=== PATIENT | female | born 1985 | race Caucasian/White ===

== ENCOUNTER 2016-11-04 13:22 | Emergency (ER) | payer OTHER ==
[~2016-11-04] VITALS: Ht 170.2 cm; Wt 63.5 kg
[~2016-11-04 13:22] MED LIST: AMOX500T PO; PNV1TABL25 PO
[2016-11-04 13:33] VITALS: BP 144/73
--- NOTE | 2016-11-04 14:00 | PHYS DOC ---
General Chief Complaint: MULTIPLE COMPLAINTS Stated Complaint: MULTIPLE COMPLAINTS Time Seen by MD: 13:24 Source: patient Exam Limitations: no limitations Problems: History of Present Illness Initial Comments Pt is 31/F to ED c/o right face symptoms. Pt states she has severe allergic rhinitis as baseline. Past few days pt with worsening right TMJ discomfort/popping/swelling. Past two days right eye red/ itchy/watery. No contacts/vision change/hearing change/ear discharge/trauma. No fever/chills/myalgias/diaphoresis, no cp/sob/reyna/focal neurologic symptoms. Taking OTC sudafed in addition to her normal allergy regimen HR 110 bpm asymptomatic. Pt also drank [employer] energy drink early this am. Timing/Duration: gradual Severity: moderate Location: eye (R), facial Prearrival Treatment: over the counter meds Modifying Factors: worse with coughing, improves with rest Associated Symptoms: facial pain/swelling, other Allergies: Coded Allergies: No Known Drug Allergies (Unverified , 12/31/14) Past Medical History Medical History: other (depression) Surgical History: noncontributory Social History Smoker: non-smoker Alcohol: occasionally Drugs: none Constitutional: denies chills, denies diaphoresis, denies fever Eyes: see HPI Ears: denies dizziness, denies pain, denies tinnitus Nose: denies clots, denies congestion, denies epistaxis Throat: denies pain, denies swelling, denies neck stiffness Respiratory: denies cough, denies shortness of breath Cardiovascular: denies chest pain, denies palpitations Gastrointestinal: denies abdominal pain, denies nausea, denies vomiting Musculoskeletal: denies back pain, denies joint swelling, denies neck pain Neurological: denies headache, denies numbness, denies paresthesia Physical Exam General Appearance: WD/WN, no apparent distress Eyes: right eye other (injected, mild periorbital swelling, clear/yellow discharge), left eye normal inspection, bilateral eye PERRL, bilateral eye EOMI Ears: right ear other (cerumen R canal), left ear TM normal, bilateral ear auricle normal, bilateral ear canal normal Nose: normal inspection Mouth/Throat: normal mouth inspection, pharynx normal, other (reactive preauricular node on right, TMJ TTP right no swelling or palpable abnormality) Neck: supple, trachea midline Cardiovascular/Respiratory: normal peripheral pulses, no respiratory distress Neurologic/Psychiatric: 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 Discussed IV/labs/CT vs empiric tx periorbital cellulitis/conjunctivitis and close PCP follow up. Pt states she would like to try discharge with abx/symptomatic treatment and early PCP f/u. Understands she can return at any time for further workup. Departure Time of Disposition: 13:57 Disposition: 01 HOME, SELF-CARE Diagnosis: periorbital cellulitis, conjunctivitis Condition: GOOD Patient Instructions: Bacterial Conjunctivitis, [id number], Periorbital Cellulitis Additional Instructions: Rest, no strenuous activity. Work/school excuse thru 11/07. Aggressive hand washing and linen changes as discussed. Rx: bactrim ds, prednisone, polytrim, norco 5mg #10 Follow up with your doctor in 3-5 days if no better. Return to ED with new or changing symptoms. VERA SHAH DO November 04, 2016 14:00
[2016-11-04] MEDS ORDERED: HYDR-971 PO (14:02)
[2016-11-04] MEDS ORDERED: POLY10DR EACHEYE (14:02)
[2016-11-04] MEDS ORDERED: SULF1TAB24 PO (14:02)
[2016-11-04] MEDS ORDERED: PRED20TA PO (14:02)
[2016-11-04] MEDS ORDERED: ONDANSETRON ODT 4 MG TAB.RAPDIS PO ONE (14:35)
[2016-11-04] MEDS ORDERED: predniSONE 20 MG TABLET PO ONE (14:35)
[2016-11-04] MEDS ORDERED: SMZ/TMP 800/160MG TABLET. PO ONE (14:35)
== END 2016-11-04 14:35 | disposition home or self-care (01) ==
LOC: ER 13:22
DX: H10.9 Unspecified conjunctivitis (principal); L03.213 Periorbital cellulitis
CPT/HCPCS: 99284; J7512; Q0162

== ENCOUNTER 2016-11-06 10:18 | Emergency (ER) | payer SELFPAY ==
[~2016-11-06] VITALS: Ht 170.2 cm; Wt 63.5 kg
[~2016-11-06 10:18] MED LIST changes: +HYDR-971 PO; +POLY10DR EACHEYE; +PRED20TA PO; +SULF1TAB24 PO
[2016-11-06] MEDS: IOHEXOL 300 MG/ML 75 ML VIAL. IV ONE (11:25)
[2016-11-06 11:32] LABS: BASO % 0 % (0-3); EOS % 0 % (0-3); HEMATOCRIT 38.7 % (36.0-47.0); LYMPH % 9 % (24-48); MEAN CORPUSCULAR HEMOGLOBIN 29 pg (25-35); MEAN CORPUSCULAR HGB CONC 34 g/dL (31-37); MEAN CORPUSCULAR VOLUME 87 fL (79-100); MONO # 0.8 x10^3/uL (0.0-1.1); MONO % 7 % (0-9); NEUT # 9.5 x10^3uL (1.8-7.7); NEUT % 84 % (31-73); PLATELET COUNT 126 x10^3/uL (140-400); RED BLOOD COUNT 4.44 x10^6/uL (3.50-5.40); RED CELL DISTRIBUTION WIDTH 15.5 % (11.5-14.5); WHITE BLOOD COUNT 11.3 x10^3/uL (4.0-11.0)
[2016-11-06 11:41] LABS: ALBUMIN 3.8 g/dL (3.4-5.0); C REACTIVE PROTEIN 6.4 mg/L (0-3.3); CALCIUM 8.6 mg/dL (8.5-10.1); CREATININE 0.8 mg/dL (0.6-1.0); DIRECT BILIRUBIN 0.1 mg/dL (0.0-0.2); GFR 83.7; POTASSIUM 3.5 mmol/L (3.5-5.1); TOTAL BILIRUBIN 0.3 mg/dL (0.2-1.0); TOTAL PROTEIN 7.7 g/dL (6.4-8.2)
--- NOTE | 2016-11-06 11:51 | RAD ---
Examination: CT head and maxillofacial with IV contrast History: History of right face, neck swelling since Saturday cannot hear out of the right eye prior comparison: None available technique: Axial CT images of the head and maxillofacial performed with IV contrast. Coronal and sagittal reformats were performed [facility] Compliance Statement: One or more of the following individualized dose reduction techniques were utilized for this examination: 1. Automated exposure control 2. Adjustment of the mA and/or kV according to patient size 3. Use of iterative reconstruction technique Findings: The evaluation of the CT head is limited due to administration of IV contrast. Grossly there is no evidence of midline shift. The visualized lateral ventricles, third ventricle, fourth ventricle are prominent for age. No evidence of enhancing intracranial lesion identified. The bilateral orbital globes appear intact. The orbital fat is maintained. The extra ocular muscles appear symmetric The bilateral orbital gregg appear intact. The visualized paranasal sinuses are clear The mastoid air cells are clear. Impression: 1. No evidence of enhancing intracranial lesion visualized. Evaluation of the CT head is limited due to IV contrast. 2. No evidence of focal fluid collection identified to suggest an abscess.
[2016-11-06] MEDS: IV NORMAL SALINE 1,000ML 1,000 ML IV SCH (12:00)
--- NOTE | 2016-11-06 12:04 | RAD ---
Examination: CT soft tissue neck with IV contrast History: History of right facial, neck swelling since Jorge Comparison: None available Technique: Axial CT images of soft tissue neck were performed with IV contrast. Coronal and sagittal reformats were performed [facility] Compliance Statement: One or more of the following individualized dose reduction techniques were utilized for this examination: 1. Automated exposure control 2. Adjustment of the mA and/or kV according to patient size 3. Use of iterative reconstruction technique Findings: The visualized carotid spaces, bilateral injection molding machine operator spaces grossly appear unremarkable. The bilateral parapharyngeal spaces are intact. Small subcentimeter probable lymph nodes identified in the right parotid gland. The visualized piriform sinuses, left vallecula are patent. There is minimal enlarged appearing bilateral tonsils. No evidence of focal fluid collection identified to suggest an abscess. The visualized vocal cord grossly appears unremarkable. The thyroid gland grossly appears unremarkable. The apical lungs are grossly appears unremarkable. Small prominent appearing bilateral cervical level 2 lymph nodes with the largest measuring 1.5 cm in the right. The vertebral body heights are maintained. Impression: 1. No evidence of focal fluid collection to suggest an abscess. 2. Mild prominent appearing bilateral tonsils. Correlate clinically. Few prominent appearing bilateral level 2 cervical lymph nodes identified, nonspecific or reactive.
[2016-11-06] MEDS ORDERED: cefTRIAXone SODIUM 1 GM VIAL IV ONE (12:18)
[2016-11-06] MEDS ORDERED: IV NORMAL SALINE 50ML 50 ML ONE (12:18)
--- NOTE | 2016-11-06 12:23 | PHYS DOC ---
General Chief Complaint: EYE PROBLEMS Stated Complaint: NA Time Seen by MD: 10:21 Source: patient, old records Exam Limitations: no limitations Problems: History of Present Illness Initial Comments Pt is 31/F to ED "for workup." Pt seen here 2 days ago (Mother's Day) for R eye redness/itching/tearing, R ear and neck pain/feeling of fullness. Pt with tachycardia two days ago, refused CT /labs at that time and was d/c with antibiotics. Pt taking meds as prescribed, states she is no better. No hearing/visual changes, no neck stiffness/dysphagia /mosquera. No ear drainage, +nonproductive cough and sore throat. Not eating much but drinking well, VSS in ED pt afebril. Timing/Duration: last week Severity: moderate Location: eye (R), ear (R), throat, facial Prearrival Treatment: over the counter meds, prescription meds Modifying Factors: worse with coughing, improves with rest Associated Symptoms: cough, facial pain/swelling, fever, malaise, nasal congestion/drainage, poor solids intake, sore throat Allergies: Coded Allergies: No Known Drug Allergies (Unverified , 12/31/14) Past Medical History Medical History: no pertinent history Surgical History: noncontributory Social History Smoker: cigarettes Alcohol: occasionally Drugs: none Constitutional: see HPI Eyes: see HPI, denies blindness, denies blurred vision, drainage, denies decreased acuity, denies foreign body sensation, denies inflammation, denies pain, denies photophobia Ears: see HPI, denies dizziness, pain, denies tinnitus, denies bloody discharge , denies clear discharge Nose: see HPI, denies clots, congestion, denies epistaxis Mouth: denies clots, denies loose teeth, denies pain, denies swelling Throat: see HPI, denies neck stiffness Respiratory: cough, denies shortness of breath, denies wheezing Cardiovascular: denies chest pain, denies edema, denies palpitations, denies syncope Gastrointestinal: denies diarrhea, denies nausea, denies vomiting Neurological: headache, denies numbness, denies paresthesia Physical Exam General Appearance: WD/WN, mild distress Eyes: right eye other (conjunctiva injected, yellow discharge, ), left eye normal inspection, bilateral eye PERRL, bilateral eye EOMI Ears: bilateral ear auricle normal, bilateral ear canal normal, bilateral ear TM normal Nose: normal inspection Mouth/Throat: other (pharynx beefy red airway patent) Neck: supple, trachea midline, lymphadenopathy (R), lymphadenopathy (L) Cardiovascular/Respiratory: normal peripheral pulses, normal breath sounds Neurologic/Psychiatric: 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 PHYSICIAN: VERA SHAH DO REASON: R eye/face/TMJ pain/swelling, r/o abscess/mass PROCEDURE: CT HEAD AND MAXILLOFACIAL W/ Examination: CT head and maxillofacial with IV contrast History: History of right face, neck swelling since Saturday cannot hear out of the right eye prior comparison: None available technique: Axial CT images of the head and maxillofacial performed with IV contrast. Coronal and sagittal reformats were performed [facility] Compliance Statement: One or more of the following individualized dose reduction techniques were utilized for this examination: 1. Automated exposure control 2. Adjustment of the mA and/or kV according to patient size 3. Use of iterative reconstruction technique Findings: The evaluation of the CT head is limited due to administration of IV contrast. Grossly there is no evidence of midline shift. The visualized lateral ventricles, third ventricle, fourth ventricle are prominent for age. No evidence of enhancing intracranial lesion identified. The bilateral orbital globes appear intact. The orbital fat is maintained. The extra ocular muscles appear symmetric The bilateral orbital gregg appear intact. The visualized paranasal sinuses are clear The mastoid air cells are clear. Impression: 1. No evidence of enhancing intracranial lesion visualized. Evaluation of the CT head is limited due to IV contrast. 2. No evidence of focal fluid collection identified to suggest an abscess. DICTATED AND SIGNED BY: MARCELLUS GARCIA MD DATE: 11/06/16 1142 CC: LAYO PRADO MD; VERA SHAH DO ~ PATIENT: ISABEL MOSS ACCOUNT: [id number] : 1985 LOCATION: ER AGE: 31 SEX: F EXAM STATUS: REG ER ORD. PHYSICIAN: VERA SHAH DO REASON: R eye/face/TMJ pain/swelling, r/o abscess/mass PROCEDURE: CT SOFT TISSUE NECK W/CONTRAST Examination: CT soft tissue neck with IV contrast History: History of right facial, neck swelling since Saturday Comparison: None available Technique: Axial CT images of soft tissue neck were performed with IV contrast. Coronal and sagittal reformats were performed [facility] Compliance Statement: One or more of the following individualized dose reduction techniques were utilized for this examination: 1. Automated exposure control 2. Adjustment of the mA and/or kV according to patient size 3. Use of iterative reconstruction technique Findings: The visualized carotid spaces, bilateral occupational therapist home based spaces grossly appear unremarkable. The bilateral parapharyngeal spaces are intact. Small subcentimeter probable lymph nodes identified in the right parotid gland. The visualized piriform sinuses, left vallecula are patent. There is minimal enlarged appearing bilateral tonsils. No evidence of focal fluid collection identified to suggest an abscess. The visualized vocal cord grossly appears unremarkable. The thyroid gland grossly appears unremarkable. The apical lungs are grossly appears unremarkable. Small prominent appearing bilateral cervical level 2 lymph nodes with the largest measuring 1.5 cm in the right. The vertebral body heights are maintained. Impression: 1. No evidence of focal fluid collection to suggest an abscess. 2. Mild prominent appearing bilateral tonsils. Correlate clinically. Few prominent appearing bilateral level 2 cervical lymph nodes identified, nonspecific or reactive. DICTATED AND SIGNED BY: MARCELLUS GARCIA MD DATE: 11/06/16 7672 CC: LAYO PRADO MD; VERA SHAH DO ~ WBC 11.3, plt 126, ESR 11, CRP 6.4, lactic acid 0.8 I discussed findings and tx plan with pt, she expressed agreement/ understanding. Advised to stop smoking. Departure Time of Disposition: 12:41 Disposition: 01 HOME, SELF-CARE Diagnosis: tonsillitis, conjunctivitis Condition: GOOD Patient Instructions: Bacterial Conjunctivitis, [id number], Tonsillitis, Easy -to-Read Additional Instructions: Continue current medications and treatment plan. Follow up with your doctor in 3-5 days if not better. Return to ED with new or changing symptoms. VERA SHAH DO November 06, 2016 12:23
[2016-11-06 12:35] LABS: SEDIMENTATION RATE 11 (0-25)
[2016-11-06 13:25] VITALS: BP 119/63
== END 2016-11-06 13:33 | disposition home or self-care (01) ==
LOC: ER 10:18
DX: H10.9 Unspecified conjunctivitis (principal); J03.90 Acute tonsillitis, unspecified; M54.2 Cervicalgia; F17.210 Nicotine dependence, cigarettes, uncomplicated
CPT/HCPCS: 36415; 70460; 70487; 70491; 80048; 80076; 82550; 83605; 85027; 85651; 86140; 87040; 96365; 99285; J0696; Q9967

== ENCOUNTER → 2017-04-03 | Outpatient (CLI) | payer OTHER ==
--- NOTE | 2017-04-03 13:32 | RAD ---
DATE: 04/03/2017 EXAM: MAMMO TERELL HDZ, BREAST RIGHT HISTORY: Lumps right breast and fullness in the right axilla. The patient reports a strong family history for breast cancer. She reports that her mother developed breast cancer at the age of 39 and that her grandmother and great grandmother both had breast cancer. COMPARISON: None. This is an initial exam This study was interpreted with the benefit of Computerized Aided Detection (CAD). FINDINGS: Breast Density: HETERO The breast parenchyma Is heterogeneiously dense, which could reduce sensitivity of mammography. Breast parenchyma level C. The areas of concern in the right breast were marked. The nipples were also marked. On mammography no abnormality is seen. No mass is identified. No abnormal calcifications are seen. Ultrasound was also performed. The examination was targeted to where the patient reports some fullness in the right breast. No abnormality is seen. The right axilla also appears unremarkable. IMPRESSION: Benign mammographic and targeted ultrasound findings. If there is a discrete, palpable, mass in either breast biopsy may be warranted despite unremarkable imaging. Because of the family history of breast malignancy consideration should be given to BRCA gene testing BI-RADS CATEGORY: 2 BENIGN FINDING(S) RECOMMENDED FOLLOW-UP: 12M 12 MONTH FOLLOW-UP PQRS compliance statement: Patient information was entered into a reminder system with a target due date 04/03/2018 for the next mammogram. Mammography is a sensitive method for finding small breast cancers, but it does not detect them all and is not a substitute for careful clinical examination. A negative mammogram does not negate a clinically suspicious finding and should not result in delay in biopsying a clinically suspicious abnormality. "Our facility is accredited by the [employer] Mammography Program."
== END | disposition home or self-care (01) ==
LOC: US 10:37
PROVIDERS: ATTEND Nurse Practitioner Adult Health
DX: N63.10 Unspecified lump in the right breast, unspecified quadrant (principal); Z80.3 Family history of malignant neoplasm of breast
CPT/HCPCS: 76641; G0204; G0279; 77062; 77066